=== PATIENT | male | born 1955 | race Caucasian/White ===

== ENCOUNTER 2023-02-28 10:44 | Emergency (ER) | payer OTHER ==
[~2023-02-28] VITALS: Ht 175.3 cm; Wt 90.0 kg
[2023-02-28 10:48] VITALS: BP 145/85; PULSE 75; TEMP 97.8; O2SAT 99
[2023-02-28] MEDS ORDERED: NAPR-56 PO (12:59)
[2023-02-28] MEDS ORDERED: CYCL-1 PO (12:59)
[2023-02-28] MEDS ORDERED: diazepam inj 5 MG/ML inj. IM ONE (13:30)
[2023-02-28] MEDS ORDERED: ketorolac trometh inj. 60 MG/2 ML VIAL IM ONE (13:30)
[2023-02-28 13:36] VITALS: RESP 18
== END 2023-02-28 13:43 | disposition home or self-care (01) ==
LOC: ER 10:44
DX: S39.012A Strain of muscle, fascia and tendon of lower back, initial encounter (principal); I10 Essential (primary) hypertension; Z87.891 Personal history of nicotine dependence; X50.0XXA Overexertion from strenuous movement or load, initial encounter; Y93.89 Activity, other specified; Y92.89 Other specified places as the place of occurrence of the external cause; Y99.8 Other external cause status
CPT/HCPCS: 96372; 99283; J1885

== ENCOUNTER 2023-03-31 11:31 | Outpatient (CLI) | payer OTHER ==
[~2023-03-31 11:31] MED LIST: CYCL-1 PO; NAPR-56 PO
== END 2023-03-31 23:59 | disposition home or self-care (01) ==
LOC: RAD 11:31
PROVIDERS: ATTEND Family Medicine
DX: M47.816 Spondylosis without myelopathy or radiculopathy, lumbar region (principal); M48.061 Spinal stenosis, lumbar region without neurogenic claudication; M51.26 Other intervertebral disc displacement, lumbar region; M48.56XA Collapsed vertebra, not elsewhere classified, lumbar region, initial encounter for fracture
CPT/HCPCS: 72148

== ENCOUNTER 2024-12-19 09:08 | Outpatient (CLI) | payer BC ==
[~2024-12-19 09:08] MED LIST changes: -NAPR-56 PO
[2024-12-19 10:02] LABS: ALANINE AMINOTRANSFERASE 41 U/L (12-78); ALBUMIN 3.8 G/DL (3.4-5.0); ALBUMIN/GLOBULIN RATIO 1.2 (1.1-1.5); ALKALINE PHOSPHATASE 80 IU/L (46-116); ANION GAP 9 (8-16); ASPARTATE AMINO TRANSFERASE 38 U/L (10-37); BILIRUBIN,TOTAL 0.6 MG/DL (0.1-1.0); BLOOD UREA NITROGEN 12 MG/DL (7-18); BUN/CREATININE RATIO 10.8 (10.0-20.0); CHLORIDE 95 MMOL/L (99-107); CREATININE 1.11 MG/DL (0.60-1.10); GLUCOSE 116 MG/DL (70-104); HDL CHOLESTEROL 50 MG/DL (35-60); LDL CHOLESTEROL 93 MG/DL (50-100); SODIUM 130 MMOL/L (135-145); TRIGLYCERIDES 131 MG/DL (20-135); eGFR 65 ML/MIN
[2024-12-19 10:11] LABS: CHOL/HDL RATIO 3.5 (0.00-4.99); CHOLESTEROL 176 MG/DL (0-200)
[2024-12-20 08:18] LABS: PROSTATE SPECIFIC AG, SERUM <0.1 ng/mL (0.0-4.0); PSA, FREE <0.02 ng/mL
== END 2024-12-19 23:59 | disposition home or self-care (01) ==
LOC: LAB 09:08
PROVIDERS: ATTEND General Practice
DX: I10 Essential (primary) hypertension (principal); E78.5 Hyperlipidemia, unspecified; C61 Malignant neoplasm of prostate
CPT/HCPCS: 36415; 80053; 80061; 84153; 84154

== ENCOUNTER 2025-02-26 15:14 | Outpatient (CLI) | payer BC ==
--- NOTE | 2025-02-26 20:41 | RADIOLOGY REPORT ---
PROCEDURE: MR MRI LUMBAR SPINE Indication: SPONDYLOLISTHESIS, LUMBAR REGION COMPARISON: MR MRI LUMBAR SPINE on DOS: 03/31/23 report only, images not available TECHNIQUE: Multiplanar multisequence images of the the lumbar spine are obtained. FINDINGS: For the purpose of this examination, there are 5 lumbar vertebral body types counting from the lumbos acral junction. There is a chronic L2 compression deformity with approximately 50% loss height. The Remaining lumbar heights are maintained. Moderate to severe multilevel disc space narrowing and desiccation. Schmor l's nodes at the L3 superior endplate. 7 mm anterolisthesis L4 upon L5. Conus terminates at the super ior L1 vertebral body level. T12-L1: 3 mm disc protrusion. Kawh-ya-kdrldnwn facet and flavum hypertrophy. No spinal canal stenosi s. Gomh-ib-cbhdjfvx bilateral neural foraminal stenosis. L1-2: 2 mm disc protrusion. Wbap-cv-ysmpsfml facet and flavum hypertrophy. No spinal canal stenosis. Hqsp-ja-oyijkfow right and mild left neural foraminal stenosis. L2-3: 3 mm disc protrusion. Moderate facet and flavum hypertrophy. Thecal sac measures 5 mm AP. Sev ere spinal canal stenosis. Severe bilateral neural foraminal stenosis. L3-4: Disc extrusion extending 5 mm posteriorly and 7 mm superiorly abutting the descending right L4 nerve. Moderate facet and flavum hypertrophy. Thecal sac measures 4 mm AP. Severe spinal canal sten osis. Severe bilateral neural foraminal stenosis. L4-5:m 5 mm disc protrusion. Moderate to severe facet and flavum hypertrophy. Thecal sac measures 6 mm AP. Severe spinal canal stenosis severe bilateral neural foraminal stenosis. L5-S1: Small disc protrusion. Moderate facet and flavum hypertrophy. No spinal canal stenosis. Mod erate bilateral neural foraminal stenosis. Bilateral renal cysts. 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 Severe spinal canal stenosis at L2-3, L3-4 and L4-5. Disc extrusion at L3-4 which abuts the descending right L4 nerve root. Multilevel moderate to severe neural foraminal stenosis as described. Chronic L2 compression deformity with 50% loss height. 7 mm anterolisthesis L4 on L5. 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 Recommend vascular surgery consultation for further management.
== END 2025-02-26 23:59 | disposition home or self-care (01) ==
LOC: MRI02 15:14
PROVIDERS: ATTEND Anesthesiology
DX: M51.27 Other intervertebral disc displacement, lumbosacral region (principal); M43.16 Spondylolisthesis, lumbar region; M53.3 Sacrococcygeal disorders, not elsewhere classified; M43.8X6 Other specified deforming dorsopathies, lumbar region; I71.43 Infrarenal abdominal aortic aneurysm, without rupture; N28.1 Cyst of kidney, acquired; M47.817 Spondylosis without myelopathy or radiculopathy, lumbosacral region
CPT/HCPCS: 72148